=== PATIENT | female | born 2000 | race Caucasian/White ===

== ENCOUNTER 2019-05-14 21:57 | Emergency (ER) | payer OTHER ==
[~2019-05-14 21:57] MED LIST: OMEPRAZOLE20 M1
--- OUTSIDE RECORDS SUMMARY | 2019-05-14 21:59 | XMS REPORT ---
[facility] Address Unknown Phone Unavailable Care Team Providers Care Business Account Manager Name Role Phone Unavailable Unavailable Payers Payer Name Policy Type Policy Number Effective Date Expiration Date Problems This patient has no known problems. Allergies, Adverse Reactions, Alerts Allergy Name Allergy Type Status Severity Reaction(s) Onset Date Inactive Date Treating Clinician Comments No Known Allergies DA Active U 2016-08-10 00:00:00 Medications This patient has no known medications.
== END 2019-05-14 22:05 | disposition left against medical advice (07) ==
LOC: FSED 21:57
DX: R39.89 Other symptoms and signs involving the genitourinary system (principal)